=== PATIENT | female | born 1950 | race Asian ===

== ENCOUNTER 2018-12-21 09:42 | Outpatient (CLI) | payer MEDICARE ==
--- NOTE | 2019-01-05 14:33 | MMO ---
Bilateral MAMMO Bilat Screen [facility]DI. CLINICAL HISTORY: Patient is 68 years old and is seen for screening. The patient has no family history of breast cancer. The patient has no personal history of cancer. VIEWS: The views performed were: bilateral craniocaudal and bilateral mediolateral oblique. FILMS COMPARED: The present examination has been compared to prior imaging studies performed at [place], [place] on 11/25/2011, 11/09/2014 and 01/26/2016. This study has been interpreted with the assistance of computer-aided detection. MAMMOGRAM FINDINGS: There are scattered fibroglandular densities. There are no suspicious masses, suspicious calcifications, or new areas of architectural distortion. IMPRESSION: THERE IS NO MAMMOGRAPHIC EVIDENCE OF MALIGNANCY. A ROUTINE FOLLOW-UP MAMMOGRAM IN 1 YEAR IS RECOMMENDED. ACR BI-RADS Category 1 - Negative MAMMOGRAPHY NOTE: 1. A negative mammogram report should not delay a biopsy if a dominant of clinically suspicious mass is present. 2. Approximately 10% to 15% of breast cancers are not detected by mammography. 3. Adenosis and dense breasts may obscure an underlying neoplasm. Reported by: JUAN GOODWIN MD Electonically Signed: [id number]
== END 2018-12-21 09:43 | disposition home or self-care (01) ==
LOC: SCSMAMMO 09:42
PROVIDERS: ATTEND Family Medicine
DX: Z12.31 Encounter for screening mammogram for malignant neoplasm of breast (principal)
CPT/HCPCS: 77067

== ENCOUNTER 2021-07-04 11:58 | Outpatient (CLI) | payer MEDICARE | END 2021-07-04 11:59 | disposition home or self-care (01) | LOC: SCSRAD 11:58 | PROVIDERS: ATTEND Family Medicine | DX: R05.3 Chronic cough (principal) | CPT/HCPCS: 71046 ==

== ENCOUNTER 2022-03-04 09:38 | Outpatient (CLI) | payer MEDICARE, OTHER | END 2022-03-04 09:39 | disposition home or self-care (01) | LOC: SCSRAD 09:38 | PROVIDERS: ATTEND Family Medicine | DX: M46.1 Sacroiliitis, not elsewhere classified (principal); M54.50 Low back pain, unspecified; M47.816 Spondylosis without myelopathy or radiculopathy, lumbar region; M47.898 Other spondylosis, sacral and sacrococcygeal region | CPT/HCPCS: 72100; 72202 ==